=== PATIENT | male | born 1990 | race American Indian/Alaskan Native ===

== ENCOUNTER 2017-03-26 11:06 | Emergency (ER) | payer OTHER ==
[2017-03-26 11:31] VITALS: BP 142/75
--- NOTE | 2017-03-26 12:29 | Emergency Department Report ---
- General Chief complaint: Skin/Abscess/Foreign Body Stated complaint: CYST ON LIP Time Seen by Provider: 03/26/17 11:36 Source: patient Mode of arrival: Ambulatory Limitations: No Limitations - History of Present Illness Initial comments: This is a 26-year-old male nontoxic, well nourished in appearance, no acute signs of distress presents to the ED with c/o of right lip cyst x3 years. Patient stated he has never got followed up due to no insurance. Patient denies any trauma to the region. Denies any pus or drainage. Denies any fever, chills, headache, nausea, vomiting, chest pain, shortness of breathe, numbness, or tingling. Patient denies any allergies or PMH. MD complaint: other (cyst) Severity: mild Severity scale (0 -10): 8 Quality: aching Consistency: constant Improves with: none Worsens with: none Context: none Associated symptoms: denies other symptoms Treatments Prior to Arrival: none - Related Data Previous Rx's Medication Instructions Recorded Last Taken Type Penicillin V Potassium 500 mg PO BID #20 tablet 03/26/17 Unknown Rx Allergies Allergy/AdvReac Type Severity Reaction Status Date / Time No Known Allergies Allergy Unverified 03/26/17 11:28 Abscess Boil HPI - HPI Chief Complaint: Skin/Abscess/Foreign Body Stated Complaint: CYST ON LIP Time Seen by Provider: 03/26/17 11:36 Home Medications: Previous Rx's Medication Instructions Recorded Last Taken Type Penicillin V Potassium 500 mg PO BID #20 tablet 03/26/17 Unknown Rx Allergies/Adverse Reactions: Allergies Allergy/AdvReac Type Severity Reaction Status Date / Time No Known Allergies Allergy Unverified 03/26/17 11:28 ED Review of Systems ROS: Stated complaint: CYST ON LIP Other details as noted in HPI Constitutional: denies: chills, fever Eyes: denies: eye pain, eye discharge, vision change ENT: denies: ear pain, throat pain Respiratory: denies: cough, shortness of breath, wheezing Cardiovascular: denies: chest pain, palpitations Endocrine: no symptoms reported Gastrointestinal: denies: abdominal pain, nausea, diarrhea Genitourinary: denies: urgency, dysuria Musculoskeletal: denies: back pain, joint swelling, arthralgia Skin: denies: rash, lesions Neurological: denies: headache, weakness, paresthesias Psychiatric: denies: anxiety, depression Hematological/Lymphatic: denies: easy bleeding, easy bruising ED Past Medical Hx - Past Medical History Previous Medical History?: No - Surgical History Past Surgical History?: No - Social History Smoking Status: Current Every Day Smoker Substance Use Type: Alcohol - Medications Home Medications: Home Medications Medication Instructions Recorded Confirmed Last Taken Type Penicillin V Potassium 500 mg PO BID #20 tablet 03/26/17 Unknown Rx ED Physical Exam - General Limitations: No Limitations General appearance: alert, in no apparent distress - Head Head exam: Present: atraumatic, normocephalic, normal inspection - Eye Eye exam: Present: normal appearance, PERRL, EOMI. Absent: scleral icterus, conjunctival injection, nystagmus, periorbital swelling, periorbital tenderness Pupils: Present: normal accommodation - ENT ENT exam: Present: mucous membranes moist, TM's normal bilaterally, normal external ear exam - Expanded ENT Exam Expanded Ear exam: Present: normal external inspection Mouth exam: Present: normal external inspection, tongue normal. Absent: drooling, trismus, muffled voice, tongue elevation, laceration Teeth exam: Present: dental caries, gingival enlargement Throat exam: Positive: normal inspection. Negative: tonsillar erythema, tonsillomegaly, tonsillar exudate, R peritonsillar mass, L peritonsillar mass - Neck Neck exam: Present: normal inspection, full ROM. Absent: tenderness, meningismus, lymphadenopathy, thyromegaly - Respiratory Respiratory exam: Present: normal lung sounds bilaterally. Absent: respiratory distress, wheezes, rales, rhonchi, stridor, chest wall tenderness, accessory muscle use, decreased breath sounds, prolonged expiratory - Cardiovascular Cardiovascular Exam: Present: regular rate, normal rhythm, normal heart sounds. Absent: bradycardia, tachycardia, irregular rhythm, systolic murmur, diastolic murmur, rubs, gallop - GI/Abdominal GI/Abdominal exam: Present: soft, normal bowel sounds. Absent: distended, tenderness, guarding, rebound, rigid, diminished bowel sounds - Rectal Rectal exam: Present: deferred - Extremities Exam Extremities exam: Present: normal inspection, full ROM, normal capillary refill. Absent: tenderness, pedal edema, joint swelling, calf tenderness - Back Exam Back exam: Present: normal inspection, full ROM. Absent: tenderness, CVA tenderness (R), CVA tenderness (L), muscle spasm, paraspinal tenderness, vertebral tenderness, rash noted - Neurological Exam Neurological exam: Present: alert, oriented X3, CN II-XII intact, normal gait, reflexes normal - Psychiatric Psychiatric exam: Present: normal affect, normal mood - Skin Skin exam: Present: warm, dry, intact, normal color. Absent: rash - Other Other exam information: 1x1 cm nodular swelling with no induration or fluctuance noted. No surrounding cellulitis. Nontender to touch. No pus or drainage noted. ED Course Vital Signs 03/26/17 11:28 Temperature 98.3 F Pulse Rate 60 Respiratory 20 Rate Blood Pressure 142/75 O2 Sat by Pulse 97 Oximetry - Reevaluation(s) Reevaluation #1: 03/26/17 12:35 Patient is speaking in full sentences with no signs of distress noted. - Consultations Consultation #1: 03/26/17 12:35 Patient has been consulted with Dr. Castillo about patient history, physical exam, and labs and examined and screened and agrees distress plan for care. ED Medical Decision Making - Medical Decision Making This is a 25-year-old male that presents with gingivitis and nodular cyst. Patient is stable and was examined by me. Dr. Maria has been consulted and examine patient himself and agrees to plan of care. I used a 20-gauge with 10 mL syringe and tried to aspirate it to evaluate for possible abscess but there was nothing drawn back. The area is no induration or fluctuance noted. It is a nodular cyst. Patient will be discharged with penicillin twice a day for 10 days. Patient was instructed Follow-up with a primary care doctor/dentist/oral maxillary surgeon in 3-5 days or if symptoms worsen and continue return to emergency room as soon as possible. At time time of discharge, the patient does not seem toxic or ill in appearance. No acute signs of distress noted. Patient agrees to discharge treatment plan of care. No further questions noted by the patient. Critical care attestation.: If time is entered above; I have spent that time in minutes in the direct care of this critically ill patient, excluding procedure time. ED Disposition Clinical Impression: Cyst, Gingivitis Disposition: - TO HOME OR SELFCARE Is pt being admited?: No Does the pt Need Aspirin: No Condition: Stable Additional Instructions: Follow-up with a primary care doctor/dentist/oral maxillary surgeon in 3-5 days or if symptoms worsen and continue return to emergency room as soon as possible. Prescriptions: Penicillin V Potassium 500 mg PO BID #20 tablet Referrals: PRIMARY CAREMD [Primary Care Provider] - 3-5 Days RUBINA BECKMAN MD [Staff Physician] - 3-5 Days [facility] [Outside] - 3-5 Days [facility] [Outside] - 3-5 Days [facility] [Outside] - 3-5 Days Forms: Work/School Release Form(ED)
== END 2017-03-26 12:47 | disposition home or self-care (01) ==
LOC: ED 11:06
DX: K13.0 Diseases of lips (principal); F17.200 Nicotine dependence, unspecified, uncomplicated; K05.10 Chronic gingivitis, plaque induced
CPT/HCPCS: 99282